=== PATIENT | male | born 1990 | race Two or more races ===

== ENCOUNTER 2022-03-31 07:13 | Emergency (ER) | payer OTHER ==
[~2022-03-31] VITALS: Ht 152.4 cm; Wt 59.0 kg
--- NOTE | 2022-03-31 07:48 | NUR ---
PHLEB AT BEDSIDE FOR BLOOD DRAW.
--- NOTE | 2022-03-31 07:51 | NUR ---
URINE SAMPLE AND COVID SWAB COLLECTED AND SENT TO LAB
[2022-03-31] MEDS ORDERED: KETOROLAC TROMETHAMINE INJ 30 MG/ML VIAL IM ONE (08:00)
[2022-03-31] MEDS ORDERED: OLANZAPINE 10 MG VIAL IM ONE ×2 (08:00→08:04)
--- NOTE | 2022-03-31 08:00 | NUR ---
Pt wants to go voluntary to psych facility. Officer Satinder floyd patient for safety. Changed to hospital gown and belongings secured in locker. Medical Clearance per MD order
[2022-03-31] MEDS ORDERED: KETOROLAC TROMETHAMINE INJ 30 MG/ML VIAL ONE (08:04)
--- NOTE | 2022-03-31 08:05 | NUR ---
CRIPPLE CHASER AT BEDSIDE FOR XRAY
[2022-03-31 08:08] LABS: BASOPHILS % (AUTO) 0.5 % (0.0-2.0); EOSINOPHILS % (AUTO) 4.4 % (0.0-6.0); HEMATOCRIT 46 % (39-51); LYMPHOCYTES # (AUTO) 2.6 K/uL (0.8-4.8); LYMPHOCYTES % (AUTO) 40.4 % (20.0-44.0); MEAN CORPUSCULAR HGB CONC 33 g/dl (31.0-36.0); MEAN CORPUSCULAR VOLUME 95 fL (80-96); MONOCYTES # (AUTO) 0.5 K/uL (0.1-1.30); MONOCYTES % (AUTO) 8.4 % (2.0-12.0); NEUTROPHILS % (AUTO) 46.3 % (43.0-81.0); PLATELET COUNT (AUTO) 328 K/uL (150-450); RED BLOOD CELL COUNT(AUTO) 4.82 MIL/uL (4.5-6.0); WHITE BLOOD COUNT (AUTO) 6.5 K/uL (4.3-11.0)
[2022-03-31 08:17] LABS: ALBUMIN 4.1 g/dL (3.4-5.0); BILIRUBIN,DIRECT 0.1 mg/dL (0.0-0.2); BILIRUBIN,TOTAL 0.3 mg/dL (0.2-1.0); BILIRUBIN,URINE NEGATIVE (NEGATIVE); CALCIUM, SERUM 8.3 mg/dL (8.5-10.1); COLOR,URINE YELLOW (YELLOW); CREATININE 0.8 mg/dL (0.6-1.3); LEUKOCYTE ESTERASE ,URINE NEGATIVE (NEGATIVE); NITRITE, URINE NEGATIVE (NEGATIVE); POTASSIUM 3.4 mmol/L (3.5-5.1); PROTEIN,URINE NEGATIVE (NEGATIVE); TOTAL PROTEIN, SERUM 7.3 g/dL (6.4-8.2); UGLUCOSE NEGATIVE (NEGATIVE); UROBILINOGEN,URINE 0.2 EU/dL (0.2)
--- NOTE | 2022-03-31 08:19 | NUR ---
TORADOL AND ZYPREXA IM GIVEN INDICATED, MONALISA WELL
[2022-03-31 09:39] LABS: BACTERIA,URINE Rare /HPF (None Seen); RBC,URINE 0-2 /HPF (0-2); SQUAMOUS EPITHELIAL CELL,UR Few /HPF (None Seen); WBC,URINE 0-2 /HPF (0-3)
--- NOTE | 2022-03-31 12:00 | NUR ---
Lunch provided ate 100%
--- NOTE | 2022-03-31 16:17 | NUR ---
Medically Cleared. Clinicals faxed to [facility] of for voluntary psych admission
[2022-03-31] MEDS ORDERED: POTASSIUM CHLORIDE 20 MEQ TAB.PRT.SR PO ONE (17:30)
--- NOTE | 2022-03-31 19:52 | NUR ---
PER LEENA AT INTAKE ; PT GOT ACCEPTED AT [facility] UNDER CARE OF DR MORA # FOR REPORT: [phone], EXT [phone]
--- NOTE | 2022-03-31 19:58 | NUR ---
[facility] CALLED FOR TRANSPORT. ETA 2.5 HRS.
[2022-03-31 21:27] VITALS: BP 120/65
--- NOTE | 2022-03-31 21:39 | NUR ---
report given to Nkim RN to continue care.
--- NOTE | 2022-04-01 00:57 | NUR ---
REPORT GIVEN TO [facility] FOR PT TO BE TRANSFERRED TO [facility]. VSS. ALL BELONGINGS WITH PT.
== END 2022-04-01 02:03 ==
LOC: ER 07:17
DX: R45.851 Suicidal ideations (principal); R44.0 Auditory hallucinations; M25.571 Pain in right ankle and joints of right foot; Z20.822 Contact with and (suspected) exposure to COVID-19; Z59.00 Homelessness unspecified
CPT/HCPCS: 99285; 96372 ×2; 73610; 73630; 85025; 80048; 80076; 81001; 36415; 87426; 80143; 80320; 80307; J1885; J3490; C9803; G0480